=== PATIENT | male | born 1990 | race Caucasian/White ===

== ENCOUNTER → 2018-09-16 16:41 | Outpatient (CLI) | payer OTHER, SELFPAY ==
--- NOTE | 2018-09-16 | IMM_PTH ---
PATIENT: PENNY WALKER LOC: [facility] U#:[id number] AGE/SX: 34/M ROOM: RE09/16/[address]: Dr. Pola Salazar MD : 1990 BED: DIS: SPEC #: [id number] RECD: 09/20/18 12:42 STATUS: NASRIN RESravani #: [id number] RUBEN: 09/16/18 00:[address]: Pola Salazar DEPT: IMMUNOHISTOCHEMISTRY RECD BY: Ruth Hayden ENTERED: 09/20/18 12:43 SP TYPE: IMMUNO OTHR DR: Dr. Zunilda Block MD Tissues: Skin of buttock, NOS Procedures: CD31 (initial) Vimentin (add) FACTOR VIII (add) PHYSICIAN & INSTITUTION [place] [address] SPECIMEN INFORMATION: Tissue Source: Buttock lesion Clinical Info: Buttock lesion Specimen Number: [id number] CPT code: [id number], 83821 x2 METHODOLOGY: Deparaffinized sections of prefer/formalin-fixed tissue or PAP/DQ stained slides are incubated with monoclonal/polyclonal antibodies/oligonucleotide probes. Localization is made via biotin free immunoperoxidase method. Appropriate controls are performed and reacted as expected. Results on target cell population are indicated in the following table: RESULTS: ANTIBODY / CLONE RESULT CD31 (HAYDE/70A) positive, focal Factor VIII (R Ag) positive, focal Vimentin (V9) positive, focal These tests were developed and their performance characteristics determined by [facility]. They may not have been cleared or approved by the U.[place]. Food and Drug Administration. The FDA has determined that such clearance or approval is not necessary. INTERPRETATION: Buttock lesion, excision: Consistent with organizing hemorrhage. AM:mitchell 09/21/18
--- NOTE | 2018-09-16 15:00 | LES_PTH ---
PATIENT: PENNY WALKER LOC: [facility] U#:[id number] AGE/SX: 34/M ROOM: RE09/16/[address]: Dr. Pola Salazar MD : 1990 BED: DIS: SPEC #: [id number] RECD: 09/16/18 16:36 STATUS: NASRIN WARRENSravani #: [id number] RUBEN: 09/16/18 15:[address]: Pola Salazar DEPT: SURGICAL PATHOLOGY RECD BY: Yoel Fong ENTERED: 09/19/18 09:16 SP TYPE: Lesion OTHR DR: Dr. Zunilda Block MD Tissues: Skin of buttock, NOS Procedures: Surgery Specimen Level IV HEADER OPERATION: Excision of buttock lesion PRE-OP DIAGNOSIS: Buttock lesion TISSUE SUBMITTED: Buttock lesion MICROSCOPIC DIAGNOSIS Lesion of buttock, biopsy: Organizing hematoma. Focal vascular ectasia and adjacent hemorrhage. See comment. AM:mitchell 09/20/18 COMMENT Elastin stain with matched control supports the above diagnosis. Immunohistochemistry ([id number]) supports the above diagnosis. Case has been reviewed in consultation with Dr. Christopher who concurs with the above diagnosis. IDC:SJ MICROSCOPIC DESCRIPTION Slides are reviewed. GROSS DESCRIPTION Received in fixative is one container labeled with the patient's name and designated rectal tissue. The specimen consists of a piece of agee-brown soft tissue measuring 0.4 x 0.3 x 0.2 cm. The specimen is totally submitted in one cassette. / LIZANDRO:mitchell 09/19/18 TC:5 CPT: 27862, 01846
[2018-09-16 15:51] VITALS: BMI 23.1
== END ==
PROVIDERS: Family Provider Family Medicine; PCP Family Medicine; Referring Provider Surgery; Visit Provider Surgery
DX: L98.9 Disorder of the skin and subcutaneous tissue, unspecified (principal)
CPT/HCPCS: 88305; 88341; 88342

== ENCOUNTER → 2021-12-23 | Outpatient (CLI) | payer OTHER, SELFPAY ==
[2021-12-23 18:00] LABS: Absolute Lymphocyte Count 2.25 X10^3/uL (0.83-4.51); Absolute Neutrophil Count 1.2 X10^3/uL (2.0-7.7); Basophil# 0.05 X10^3/uL; Basophil% 1.3 % (0-1); Hematocrit 44.4 % (40-54); Hemoglobin 15.3 g/dL (13.0-16.5); Lymphocyte # 2.25 X10^3/ul (0.83-4.51); Lymphocyte % 58.7 % (19-41); Mean Corp Hgb Conc 34.5 g/dL (32-36); Mean Corpuscular Hgb 29.7 pg (27.0-32.0); Mean Corpuscular Volume 86.2 fL (80-94); Mean Platelet Vol. 11.1 fl (6.2-12.0); Monocyte# 0.32 X10^3/uL; Monocyte% 8.4 % (0-10); NRBC Flagged by Analyzer 0 % (0-5); Neutrophil # 1.19 X10^3/uL (2.7-7.7); Neutrophil % 31.1 % (47-70); POSITIVE MORPHOLOGY YES; Platelet Count 103 K/mm3 (150-450); RBC Distribution Width CV 12.8 % (11.6-14.6); RBC Distribution Width SD 40.3 fl (35.1-43.9); Red Blood Count 5.15 M/mm3 (4.6-6.2); White Blood Count 3.8 K/mm3 (4.4-11.0)
[2021-12-23 18:25] LABS: Differential Indicated SCAN CRITERIA MET
[2021-12-23 18:26] LABS: Differential Comment SCANNED; Reactive Lymphocyte 3+
[2021-12-24 12:42] LABS: Pathologist Review Reviewed
[2021-12-25 15:48] LABS: ASO Titer 55.4 IU/mL (0.0-200.0); EBV Acute VCA IgM < 36.0 U/mL (0.0-35.9); EBV Nuclear Antigen IgG < 18.0 U/mL (0.0-17.9); EBV-VCA IgG < 18.0 U/mL (0.0-17.9)
== END | disposition home or self-care (01) ==
LOC: MFPLAB 17:04
PROVIDERS: PCP Family Medicine; Referring Provider Family Medicine; Visit Provider Family Medicine
DX: R59.1 Generalized enlarged lymph nodes (principal)
CPT/HCPCS: 36415; 85025; 86060; 86664; 86665

== ENCOUNTER → 2024-07-21 | Outpatient (CLI) | payer OTHER, SELFPAY ==
[2024-07-21 16:03] LABS: ALB/GLOB Ratio 1.1 RATIO (0.9-2.4); AST(SGOT) 29 U/L (15-37); Alanine Aminotransfer ALT/SGPT 57 U/L (16-61); Albumin, Serum 3.9 g/dL (3.2-5.0); Alkaline Phosphatase 76 U/L (45-117); Anion Gap 6 (5-15); BUN 19 mg/dL (7-18); BUN/Creat Ratio 22.1 RATIO (10-20); Calcium,Total 9.4 mg/dL (8.5-10.1); Chloride 104 mmol/L (98-107); Creatinine, Serum 0.86 mg/dL (0.70-1.30); EST Glomerular Filtration Rate 110 mL/min (>60); Est Glom Filt Rate - Afr Amer 133 mL/min (>60); Globulin 3.4 g/dL (2.2-4.2); Glucose 95 mg/dL (74-106); Potassium 4.1 mmol/L (3.5-5.1); Protein, Total 7.3 g/dL (6.4-8.2); Sodium Level 137 mmol/L (136-145); Thyroid Stim Hormone (TSH) 0.958 uIU/mL (0.358-3.740)
== END | disposition home or self-care (01) ==
PROVIDERS: PCP Family Medicine; Referring Provider Family Medicine; Visit Provider Family Medicine
DX: N52.9 Male erectile dysfunction, unspecified (principal)
CPT/HCPCS: 36415; 80053; 84403; 84443

== ENCOUNTER 2025-03-06 13:58 | Emergency (ER) | payer OTHER, SELFPAY ==
[2025-03-06 13:58] VITALS: BP 127/114; PULSE 86; RESP 16; TEMP 36.6; O2SAT 98; BMI 25.4
[2025-03-06 14:01] VITALS: BP 127/114; PULSE 86; RESP 16; TEMP 36.6; O2SAT 98
--- NOTE | 2025-03-06 15:04 | ED.VIS.LOWEX ---
HPI History of Present Illness Chief Complaint: Lower Extremity Injury Narrative Narrative: 34-year-old male who denies significant past medical history presents with painful right calf that has had for the last 3 days. He denies any chest pain, shortness of breath, fevers, chills, or other symptoms. No trauma to the leg. He does not think he was bitten by anything. He denies any DVT or PE risk factors although his father had a blood clot and in his 40s. He does state that yesterday he felt chilled and may have had bodyaches. There is a red, tender, swollen area on his right medial calf. He states that his was concerned about a blood clot mainly because of his family history. No exacerbating or alleviating factors. [facility] Medical History No pertinent past medical history Home Medications ?Medication ?Instructions ?Recorded ?Last Taken ?Type No Known/Unobtainable [No Known 11/01/13 Unknown History Home Medications] Allergy/AdvReac Type Severity Reaction Status Date / Time No Known Allergies Allergy Verified 03/06/25 14:01 Family History Mother Diabetes Father Heart disease Myocardial infarction Grandmother Heart disease Surgical History History of oral surgery Social History Smoking Status: Unknown if ever smoked ROS ROS ED ROS Narrative Review of systems positive for red tender swollen area on the right medial calf. No chest pain, no shortness of breath, no reported chills and bodyaches yesterday. No exacerbating or alleviating factors. No trauma. EXAM Physical Exam Narrative Exam Narrative: Afebrile. Vital signs noted. Nontoxic-appearing. Cardiovascular examination reveals a regular rate and rhythm. Lungs are clear to auscultation bilaterally. The abdomen is soft and nontender without guarding or rebound, positive bowel sounds. Neurological examination is nonfocal, nonlateralizing, moves all extremities. Focused examination of the right lower extremity does show a tender swollen area without fluctuance that is erythematous on the right medial calf. No palpable cord. Neurovascular intact distally with palpable dorsalis pedis pulse. No induration or fluctuance. Const Vital Signs: 03/06/25 13:58 03/06/25 14:01 Temperature 98 F 98 F Temperature Source Oral Oral Pulse Rate 86 86 Respiratory Rate 16 16 Blood Pressure 127/114 H 127/114 H Blood Pressure Mean 118 118 Pulse Ox 98 98 Oxygen Delivery Method Room Air Room Air MDM MDM MDM Narrative Medical decision making narrative: The differential diagnosis includes but not limited to cellulitis versus DVT versus abscess versus superficial thrombophlebitis. History and physical does not support the latter 2 diagnoses. I have very low clinical suspicion for necrotizing fasciitis. There is no crepitance. Ultrasound was obtained of the right lower extremity. Discharge Plan Triage Chief Complaint: Lower Extremity Injury ED Provider: Jarad Gaston Dx/Rx/DC Orders Prescriptions: No Action No Known Home Medications Primary Care Provider: Zunilda Block Referrals: Zunilda Block MD [Primary Care Provider, Family Practice] Print Language: Luxembourger
--- NOTE | 2025-03-06 15:09 | EX.ED.DYSGE1 ---
HPI History of Present Illness Chief Complaint: Lower Extremity Injury Detail of Chief Complaint: Redness medial mid right calf Informant: patient Onset/Context/Timing Onset: Days (Redness first noted 3 days ago) Context: Gradual Onset Timing: Continuous Quality: Redness has intensified and diameter of erythema has increased Location: Medial mid right thigh Current Severity: Mild Maximum Severity: Mild Worsened by: Possibly because patient attempted to burst the center area with squeezing Relieved by: Patient states he did get pus out yesterday. Associated Symptoms Associated Symptoms: He denies fever, chills night sweats. No history of medic fever, heart mur Narrative Narrative: Patient is a 34-year-old male. Has no allergies. Is on no medication. He noted area of redness 3 days ago. It has increased in its intensity and diameter. Patient is not live [place] nor is he been camping or hiking recently. He is unaware of any insect bite. He denies fever, chills night sweats. He denies discomfort or pain in the popliteal fossa or inguinal region. During my dictation Dr. Vásquez informed me that he came in because his was concerned he had a DVT. He did not mention this to me. Of note patient did not mention to Dr. Vásquez that he squeezed the area and poked it and got purulent material. Prior similar symptoms: No Recent Illness/Hospitalization: No [facility] Medical History (Updated 03/06/25 @ 15:[address] Jarad Gaston MD) No pertinent past medical history Home Medications ?Medication ?Instructions ?Recorded ?Last Taken ?Type No Known/Unobtainable [No Known 11/01/13 Unknown History Home Medications] Allergy/AdvReac Type Severity Reaction Status Date / Time No Known Allergies Allergy Verified 03/06/25 14:01 Family History Mother Diabetes Father Heart disease Myocardial infarction Grandmother Heart disease Surgical History History of oral surgery Social History (Updated 03/06/25 @ 15:[address] Jarad Gaston MD) household members: spouse Smoking Status: Unknown if ever smoked ROS ROS ED Constitutional Constitutional ED: Denies chills, fever(s), subjective, sweats or weight loss Cardiovascular Cardiovascular: Denies chest pain Respiratory/Chest Respiratory/Chest: Reports other Details: No hemoptysis. ; Denies dyspnea or dyspnea on exertion Integumentary Reports rash; Denies abscess or Abrasions Endocrine Endocrinology: Denies cold intolerance or heat intolerance Hematologic/Lymphatic Hematologic/Lymphatic: Denies easy bleeding or easy bruising EXAM Physical Exam Const Vital Signs: 03/06/25 13:58 03/06/25 14:01 Temperature 98 F 98 F Temperature Source Oral Oral Pulse Rate 86 86 Respiratory Rate 16 16 Blood Pressure 127/114 H 127/114 H Blood Pressure Mean 118 118 Pulse Ox 98 98 Oxygen Delivery Method Room Air Room Air Positive well nourished and well developed Constitutional Narrative: Blood pressure slightly elevated. General Appearance ED: well developed and NAD HEENT HEENT Narrative: HEENT exam is grossly unremarkable. Eyes PERRL and EOMs intact bilaterally General Eye ED: Negative for scleral icterus Resp normal respiratory effort and clear to auscultation bilaterally Cardio regular rate, regular rhythm, S1 normal heart sound, S2 normal heart sound and no murmurs Extremity Negative for normal to inspection Extremity Narrative: Patient has area of erythema with a central area of discoloration. There is slight purulent material that was expressed. There is no fluctuance. There is no lymphangitis. The area of intense erythema was outlined as well as the widest area of less erythema intensity. There is no popliteal or inguinal lymphadenopathy. General Extremety ED: Negative for edema or tenderness General Extremity: Negative for edema Neuro oriented x3 and CN's II-XII intact bilaterally Sensorium / Orientation: alert Psych mental status grossly normal Skin No no rashes or lesions noted, no wounds and skin turgor normal Skin Narrative: Cellulitis right calf MDM MDM MDM Narrative Medical decision making narrative: According to patient he presented because was concerned about DVT. I explained to him that based on his history and physical DVT is not a consideration. He has an infection. Since he has no systemic symptoms and normal vital signs laboratory testing was not obtained. Since he has no allergies to antibiotics he was treated with cephalexin since this most likely represents a streptococcal infection. If there was evidence of significant abscess would have treated with Bactrim as well to cover MRSA. Discharge Plan Triage Chief Complaint: Lower Extremity Injury ED Provider: Provider,Ed Physician Dx/Rx/DC Orders Clinical Impression: Cellulitis of leg, right, Elevated blood pressure reading Instructions: ED Cellulitis Prescriptions: No Action No Known Home Medications Primary Care Provider: Stan Serrano Referrals: Zunilda Block MD [Med Staff - Validation Architect, [facility]] Peewee Gonzalez MD [[facility] Staff - Validation Architect, [facility]] - 2 Days for wound check Activity Restrictions/Additional Instructions: Since you state he would like to stay in the same office practice you referred to Dr. [facility] since Dr. Block has retired. Take antibiotics until gone If you develop temperature greater than 100, shaking chills or red streak that is going towards your knee/groin return to the emergency department. If the area of redness is 1 inch past the outer markings return to the emergency department as well Print Language: Maori Disposition Disposition: Home, Self Care
[2025-03-06 15:43] VITALS: BP 152/90; PULSE 80; RESP 14; TEMP 36.6; O2SAT 100
== END 2025-03-06 15:47 | disposition home or self-care (01) ==
PROVIDERS: Emergency Provider Emergency Medicine; PCP Family Medicine; Visit Provider Emergency Medicine
DX: L03.115 Cellulitis of right lower limb (principal); R03.0 Elevated blood-pressure reading, without diagnosis of hypertension
CPT/HCPCS: 99283